=== PATIENT | male | born 1970 | race Caucasian/White ===

== ENCOUNTER 2017-10-22 16:10 | Emergency (ER) | payer SELFPAY ==
[2017-10-22 16:15] VITALS: BP 171/96; PULSE 72; RESP 20; TEMP 98; O2SAT 96
[2017-10-22 16:23] VITALS: O2SAT 100
[2017-10-22 16:30] LABS: BASOPHIL # 0.1 TH/MM3 (0-0.2); BASOPHIL % 0.7 % (0.0-2.0); EOSINOPHIL # 0.4 TH/MM3 (0-0.4); EOSINOPHIL % 3.7 % (0.0-4.0); HEMATOCRIT 49.1 % (39.0-51.0); LYMPH % 24.9 % (9.0-44.0); LYMPHOCYTE # 2.4 TH/MM3 (1.0-4.8); MEAN CELL VOLUME 87.8 FL (80.0-100.0); MEAN CORPUSCULAR HEMOGLOBIN 29.9 PG (27.0-34.0); MONO % 5.9 % (0.0-8.0); NEUT % 64.8 % (16.0-70.0); PLATELET COUNT 212 TH/MM3 (150-450); RED CELL DISTRIBUTION WIDTH 11.7 % (11.6-17.2); WHITE BLOOD COUNT 9.5 TH/MM3 (4.0-11.0)
[2017-10-22] MEDS ORDERED: DICYCLOMINE HCL 10 MG CAP PO ONE (16:30)
[2017-10-22] MEDS ORDERED: MORPHINE SULFATE 8 MG/ML INJ IV PUSH ONE (16:30)
[2017-10-22] MEDS ORDERED: ALUMINUM/MAGNESIUM/SIMETH 30 ML CUP PO ONE (16:30)
[2017-10-22] MEDS ORDERED: ONDANSETRON HCL 4 MG/2 ML VIAL IVP ONE (16:30)
[2017-10-22] MEDS ORDERED: LIDOCAINE VISCOUS 2% SOLN 15 ML UDC PO ONE (16:30)
[2017-10-22 16:33] LABS: HEMO FLAGS DIFF FINAL
[2017-10-22 16:38] LABS: CHLORIDE 104 MEQ/L (98-107); POTASSIUM 3.7 MEQ/L (3.5-5.1); SODIUM (NA) 139 MEQ/L (136-145)
[2017-10-22 16:41] LABS: ANION GAP 8 MEQ/L (5-15); BICARBONATE 26.9 MEQ/L (21.0-32.0)
[2017-10-22 16:42] LABS: BLOOD UREA NITROGEN 20 MG/DL (7-18)
--- NOTE | 2017-10-22 16:42 | RADRPT ---
EXAM DATE/TIME: 10/22/2017 16:21 CORRECTION Corrected on: October 27, 2017; fixed date and time [place] COMPARISON: No previous studies available for comparison. INDICATIONS : Chest pain. MEDICAL HISTORY : None. SURGICAL HISTORY : None. ENCOUNTER: Initial ACUITY: 1 day PAIN SCORE: 8/10 LOCATION: Bilateral chest FINDINGS: A single view of the chest demonstrates the lungs to be symmetrically aerated without evidence of mas s, infiltrate or effusion. The cardiomediastinal contours are unremarkable. Osseous structures are intact. CONCLUSION: Normal examination. Jimenez Gonzalez MD on October 22, 2017 at 16:40 Board Certified Radiologist. Board Certified Radiologist. This report was verified electronically.
[2017-10-22 16:45] LABS: GLOMERULAR FILTRATION RATE 82 ML/MIN (>89)
[2017-10-22 16:46] VITALS: BP 187/93; PULSE 74; O2SAT 96
[2017-10-22 16:48] LABS: CREATINE KINASE 135 U/L (39-308)
[2017-10-22 17:00] LABS: CKMB 0.6 NG/ML (0.5-3.6)
[2017-10-22 17:11] LABS: ALT (GPT) 43 U/L (12-78); AST (GOT) 50 U/L (15-37)
[2017-10-22 17:13] LABS: TOTAL BILIRUBIN ADULT 0.5 MG/DL (0.2-1.0)
[2017-10-22 17:14] LABS: ALKALINE PHOSPHATASE 76 U/L (45-117)
[2017-10-22 17:20] VITALS: BP 146/94; PULSE 70; RESP 18; O2SAT 95
[2017-10-22 17:27] LABS: INDIRECT BILIRUBIN 0.4 MG/DL (0.0-0.8)
--- NOTE | 2017-10-22 17:34 | PD ---
HPI Chief Complaint: Cardiac Complaint Time Seen by Provider: 16:16 Travel History International Travel<30 days: No Contact w/Intl Traveler<30days: No Traveled to known affect area: No History of Present Illness HPI the patient's 47 years old and arrives due to epigastric pain and pain in left upper quadrant which started after he ate a very large gyro with various fixings. Nausea reported. No shortness of breath. No fever. No radiation of the pain. Severity moderate. The patient has no history of coronary artery disease in his family. He denies hypertension hyperlipidemia and diabetes however has not followed with a doctor for several years at least. Onset was somewhat sudden and the timing has been constant since. [facility] Social History Alcohol Use: No Tobacco Use: No Substance Use: No Allergies-Medications (Allergen,Severity, Reaction): Coded Allergies: No Known Allergies (Unverified , 10/22/17) Reported Meds & Prescriptions Reported Meds & Active Scripts Active No Active Prescriptions or Reported Medications Review of Systems Except as stated in HPI: all other systems reviewed are Neg General / Constitutional: No: Fever Cardiovascular: Positive: Chest Pain or Discomfort Respiratory: Positive: Shortness of Breath Physical Exam Narrative GENERAL: 47-year-old male well-nourished well-developed no acute distress SKIN: Focused skin assessment warm/dry. HEAD: Atraumatic. Normocephalic. EYES: Pupils equal and round. No scleral icterus. No injection or drainage. ENT: No nasal bleeding or discharge. Mucous membranes pink and moist. NECK: Trachea midline. No JVD. CARDIOVASCULAR: Regular rate and rhythm. No murmur appreciated. RESPIRATORY: No accessory muscle use. Clear to auscultation. Breath sounds equal bilaterally. GASTROINTESTINAL: Epigastric abdomen appears somewhat prominent. Soft. No tenderness in the right upper quadrant or region of McBurney's point. MUSCULOSKELETAL: No obvious deformities. No clubbing. No cyanosis. No edema. NEUROLOGICAL: Awake and alert. No obvious cranial nerve deficits. Motor grossly within normal limits. Normal speech. PSYCHIATRIC: Appropriate mood and affect; insight and judgment normal. Data Data Last Documented VS Vital Signs Date Time Temp Pulse Resp B/P (MAP) Pulse Ox O2 Delivery O2 Flow Rate FiO2 10/22/17 17:20 70 18 146/94 (111) 95 10/22/17 16:46 Nasal Cannula 2.00 10/22/17 16:15 98.0 VS reviewed Orders Orders Electrocardiogram (10/22/17 16:20) Complete Blood Count With Diff (10/22/17 16:20) Basic Metabolic Panel (Bmp) (10/22/17 16:20) Ckmb (Isoenzyme) Profile (10/22/17 16:20) Troponin I (10/22/17 16:20) Chest, Single Ap (10/22/17 16:20) Iv Access Insert/Monitor (10/22/17 16:20) Ecg Monitoring (10/22/17 16:20) Oxygen Administration (10/22/17 16:20) Oximetry (10/22/17 16:20) Lipase (10/22/17 16:20) Hepatic Functional Panel (10/22/17 16:28) Ondansetron Inj (Zofran Inj) (10/22/17 16:30) Dicyclomine (Bentyl) (10/22/17 16:30) Morphine Inj (Morphine Inj) (10/22/17 16:30) Al-Mag Hy-Si 40-40-4 Mg/Ml Liq (Mag-Al P (10/22/17 16:30) Lidocaine 2% Viscous (Xylocaine 2% Visco (10/22/17 16:30) CKMB (10/22/17 16:20) CKMB% (10/22/17 16:20) Labs Laboratory Tests Test 10/22/17 16:20 White Blood Count 9.5 TH/MM3 Red Blood Count 5.60 MIL/MM3 Hemoglobin 16.7 GM/DL Hematocrit 49.1 % Mean Corpuscular Volume 87.8 FL Mean Corpuscular Hemoglobin 29.9 PG Mean Corpuscular Hemoglobin Concent 34.0 % Red Cell Distribution Width 11.7 % Platelet Count 212 TH/MM3 Mean Platelet Volume 9.6 FL Neutrophils (%) (Auto) 64.8 % Lymphocytes (%) (Auto) 24.9 % Monocytes (%) (Auto) 5.9 % Eosinophils (%) (Auto) 3.7 % Basophils (%) (Auto) 0.7 % Neutrophils # (Auto) 6.0 TH/MM3 Lymphocytes # (Auto) 2.4 TH/MM3 Monocytes # (Auto) 0.6 TH/MM3 Eosinophils # (Auto) 0.4 TH/MM3 Basophils # (Auto) 0.1 TH/MM3 CBC Comment DIFF FINAL Differential Comment Blood Urea Nitrogen 20 MG/DL Creatinine 0.99 MG/DL Random Glucose 123 MG/DL Calcium Level 9.0 MG/DL Sodium Level 139 MEQ/L Potassium Level 3.7 MEQ/L Chloride Level 104 MEQ/L Carbon Dioxide Level 26.9 MEQ/L Anion Gap 8 MEQ/L Estimat Glomerular Filtration Rate 82 ML/MIN Total Bilirubin 0.5 MG/DL Direct Bilirubin LESS THAN 0.1 MG/DL Indirect Bilirubin 0.4 MG/DL Aspartate Amino Transf (AST/SGOT) 50 U/L Alanine Aminotransferase (ALT/SGPT) 43 U/L Alkaline Phosphatase 76 U/L Total Creatine Kinase 135 U/L Creatine Kinase MB 0.6 NG/ML Troponin I LESS THAN 0.02 NG/ML Total Protein 7.6 GM/DL Albumin 4.0 GM/DL Lipase 162 U/L [facility] Medical Decision Making Medical Screen Exam Complete: Yes Emergency Medical Condition: Yes Differential Diagnosis Constipation, Gastritis, Acute Cholecystitis, Biliary Colic, Pancreatitis, LARA , Hepatitis, Bowel Obstruction, Cystitis, Mesenteric Ischemia, AAA, Appendicitis , Renal Stone/Hydronephrosis, GERD, perforated viscous, NSTEMI, unstable angina , coronary vasospasm, PE, PTX, aortic dissection, pericarditis, myocarditis, endocarditis, PNA, esophageal disease, aneurysm, musculoskeletal etiologies, anxiety, cocaine/sympathomimetic abuse Narrative Course CBC & BMP Diagram 10/22/17 16:20 Calcium Level 9.0 LFTs normal Lipase normal Tn < 0.02 EKG: Sinus, rate 69, no acute ischemic injury pattern Patient reported near immediate relief shortly after this exited the examination room. See morphine and became somewhat nauseated shortly thereafter. He is again reassessed upon receipt of the workup results and reports that to have improved even more. Review of the chest x-ray reveals a prominently distended gastric bubble not an unreasonable explanation for the discomfort which correlated with exam findings and the history of present illness. Patient will be discharged home. Follow-up with primary care at home. Return precautions discussed. Patient agreeable w plan. Diagnosis Primary Impression: Epigastric abdominal pain Referrals: Primary Care Physician call for appointment Med/Other Pt SpecificInfo: No Change to Meds Scripts No Active Prescriptions or Reported Meds Disposition: DISCHARGE HOME Condition: Stable Ej Braswell MD Oct 22, 2017 17:33
--- NOTE | 2017-10-23 15:24 | EKG ---
Date Performed: 10/22/2017 Time Performed: 16:14:18 PTAGE: 47 years EKG: Sinus rhythm WITH SINUS ARRHYTHMIA MODERATE INTRAVENTRICULAR CONDUCTION DELAY BORDERLINE ECG INTERPRETATION BASED ON A DEFAULT AGE OF 40 YEARS NO PREVIOUS TRACING DOCTOR: Lb Braswell Interpretating Date/Time 10/23/2017 15:22:56
== END 2017-10-22 17:51 | disposition home or self-care (01) ==
LOC: PHED 16:10
DX: R10.13 Epigastric pain (principal)
CPT/HCPCS: 71010; 80048; 80076; 82550; 82552; 83690; 84484; 85025; 93005; 96374; 96375; 99285; J2270; J2405